=== PATIENT | female | born 1995 | race Caucasian/White ===

== ENCOUNTER 2018-09-26 00:30 | Emergency (ER) | payer OTHER, MEDICAID, SELFPAY ==
[2018-09-26 00:45] VITALS: BP 128/67; PULSE 66; RESP 16; O2SAT 99
[2018-09-26 00:52] VITALS: PULSE 66; RESP 16; O2SAT 99
--- NOTE | 2018-09-26 00:52 | DI.RAD.S_ITS ---
PROCEDURE: XR FINGER LT MIN 2V INDICATIONS: caught ring on fence TECHNIQUE: AP hand, 2 views of the 3rd finger(s) acquired. COMPARISON: None. FINDINGS: Bones: No fractures or dislocations. No suspicious bony lesions. Soft tissues: No suspicious soft tissue calcifications. Soft tissue swelling over the fourth proximal interphalangeal joint. IMPRESSION: No fractures. Soft tissue swelling. Dictated by: Perla Ortiz M.D. on 09/26/2018 at 8:55 Approved by: Perla Ortiz M.D. on 09/26/2018 at 8:58
--- NOTE | 2018-09-26 02:45 | ED_ITS ---
HPI - Extremity Injury (Upper) General Chief Complaint: Extremity Injury, Upper Stated Complaint: think she fractured left ring finger Time Seen by Provider: 09/26/18 02:13 Source: patient Mode of arrival: ambulatory Limitations: no limitations History of Present Illness HPI narrative: Prior to arrival, the patient had placed her left hand on a fence, to jump the fence. She vaulted over the fence, but she has a ring on the left ring finger and that ring caught on a nail, tearing left circumferentially around the proximal finger. She has a superficial abrasion around the dorsal side but on the ventral side there is a deeper laceration, with some degloving affect. There is significant pain and swelling to the PIP. She has decreased range of motion finger. There is numbness. There is no active bleeding. She is right-hand dominant. Her tetanus is up-to-date. This injury happened on the job, she is at a [employer]. Related Data Allergies Allergy/AdvReac Type Severity Reaction Status Date / Time codeine Allergy Verified 09/26/18 04:49 oxycodone Allergy Verified 09/26/18 04:49 Penicillins Allergy Verified 09/26/18 04:49 Review of Systems Review of Systems ROS Unobtainable: All systems reviewed & are unremarkable except as noted in HPI and below Constitutional Denies fatigue and Denies malaise Musculoskeletal Reports numbness (left 4th finger) and Denies tingling Comments: Left finger injury as noted in HPI. Neurologic Denies confusion, Reports numbness (left 4th finger) and Denies tingling Psychiatric Denies anxiety and Denies confusion Endocrine Denies fatigue [facility] Medical History (Updated 09/26/18 @ 04:22 by Paco Cristina MD) No acute medical problems (Acute) No significant past surgical history (Acute) Social History Smoking Status: Never smoker Social History Smoking Status: Never smoker Exam Initial Vital Signs Initial Vital Signs: Vital Signs Pulse Rate 66 09/26/18 00:45 Respiratory Rate 16 09/26/18 00:45 Blood Pressure 128/67 09/26/18 00:45 Pulse Oximetry 99 09/26/18 00:45 Const General: cooperative, healthy appearing and comfortable Skin Wounds: no wounds (Laceration to the left 4th finger.) Neuro General: alert, oriented x3 and gait normal Speech: speech normal Other: The patient has tingling in the left index finger, but normal sensation at the tip of the finger. Motor is intact. Extrem Other: There is a circular tear laceration around the left index finger proximally. There is superficial avulsion of the skin on the flexor surface, there is a linear band of erythema dorsally, consistent with the ring. There is no obvious bony deformity. The MCP joint moves normally, is nontender. There is ecchymosis and swelling to the PIP joint, the flexion-extension is intact and there is no palpable abnormality. The DIPJ joint is atraumatic in functions normally. Procedures Laceration Repair Laceration 1: Site: hand (Left ring finger) Side (If applicable): left Description: other (Shallow avulsion to the volar left 4th finger) Depth: simple, single layer Local Anesthetic: other anesthetic (Topical lidocaine) Pre-repair: wound explored and irrigated extensively (No foreign bodies) Skin layer closed with: dermabond Orthopedic Splinting/Casting Injury #1: Side: left Upper Extremity Injury Location: finger (Left 4th finger) Upper Extremity Immobilizer: ulnar gutter Additional Comments: The splint was placed to immobilize the left 4th MCP joint. The splint was placed by the patient's nurse. The left hand digits are neurovascularly intact following splint placement. Course Orders Ordered: ED Orders 09/26/18 00:52 XR finger LT min 2V Stat Non-Formulary Medication (Emla) 1 ampul TOP BEDTIME DIONISIO Discontinued Medications Tramadol HCl (Ultram) 50 mg PO NOW ONE Stop: 09/26/18 04:21 Last Admin: 09/26/18 04:41 Dose: 50 mg Vital Signs - 8 hr 09/26/18 00:45 09/26/18 00:52 09/26/18 04:48 Temperature 98.0 F Pulse Rate 66 66 63 Respiratory Rate 16 16 16 Blood Pressure [Right Arm] 128/67 118/58 L Pulse Oximetry 99 99 96 MDM - Extremity Injury (Upper) Imaging Data Left fingers: My impression: No evidence of fracture to the left 4th finger Discharge Plan Departure Patient Disposition: Home Clinical Impression: Finger laceration Qualifiers: Encounter type: initial encounter Finger: ring finger Damage to nail status: without damage Foreign body presence: without foreign body Laterality: left Qualified Code(s): S61.215A - Laceration without foreign body of left ring finger without damage to nail, initial encounter Finger sprain Qualifiers: Encounter type: initial encounter Finger: ring finger Sprain of finger site: interphalangeal joint Laterality: left Qualified Code(s): S63.635A - Sprain of interphalangeal joint of left ring finger, initial encounter Instructions: DI for Laceration Repair -- Finger Activity Restrictions/Additional Instructions: Tylenol or Advil as needed for pain. Tramadol every 6 as needed Ativan control. Keep the splint in place for the next week. Have her doctor recheck the finger. If there are ongoing concerns, your doctor should refer you to Orthopedic surgery. Return to the ER as necessary. Referrals: Melissa Umanzor MD [Primary Care Provider] -
[2018-09-26] MEDS: TRAMADOL 50 MG TABLET PO (04:41)
[2018-09-26 04:48] VITALS: BP 118/58; PULSE 63; RESP 16; TEMP 36.7; O2SAT 96
[2018-09-26] MEDS: TRAMADOL 50 MG PREPACK 1 BOTTLE MISC (04:53)
[2018-09-26] MEDS: LIDOCAINE/PRILOCAINE 5 GM TOP (05:08)
--- NOTE | 2018-09-26 05:10 | PC.NURSE ---
a small gauze dressing was applied to her finger lacerattion before padding and splint applied.she left smiling and thankfull.
== END 2018-09-26 05:00 | disposition home or self-care (01) ==
PROVIDERS: Emergency Provider Emergency Medicine; PCP Family Medicine
DX: S61.215A Laceration without foreign body of left ring finger without damage to nail, initial encounter (principal); S63.635A Sprain of interphalangeal joint of left ring finger, initial encounter; Y99.0 Civilian activity done for income or pay
CPT/HCPCS: 29125; 73140; 99283